=== PATIENT | male | born 1985 | race Caucasian/White ===

== ENCOUNTER → 2017-08-04 | Outpatient (CLI) | payer OTHER ==
[~2017-08-04] MED LIST: CEFTRIAXONE2 GM IV; LEVAQUIN 500 M500 M2 PO; MOBIC7.5 MG PO; PERCOCET 7.5-31 EACH PO
== END | disposition home or self-care (01) ==
LOC: M.RAD 12:50
DX: M25.552 Pain in left hip (principal); G89.29 Other chronic pain; F17.210 Nicotine dependence, cigarettes, uncomplicated; Z79.891 Long term (current) use of opiate analgesic

== ENCOUNTER → 2017-08-11 | Outpatient (CLI) | payer OTHER ==
[2017-08-11 16:36] LABS: HEMATOCRIT 43.6 % (42.0-52.0); MCH 30.2 pg (26.0-34.0); MCHC 34.5 g/dL (28.0-37.0); MCV 87.5 fL (80.0-100.0); MPV 8.7 fl. (7.2-11.1); RBC 4.98 mil/uL (4.50-6.00); RDW-CV 12.7 % (10.5-14.5); WBC 9.5 thou/uL (4.0-11.0)
== END ==
LOC: M.LAB 16:14
PROVIDERS: Orthopaedic Surgery
DX: M25.552 Pain in left hip (principal)

== ENCOUNTER 2017-08-23 22:56 | Inpatient (IN) | payer OTHER ==
[~2017-08-23] VITALS: Ht 190.5 cm; Wt 104.3 kg
[2017-08-23 23:19] VITALS: BP 135/83
[2017-08-23] MEDS ORDERED: CEFTRIAXONE2 GM IV (23:25)
[2017-08-23] MEDS ORDERED: PERCOCET 7.5-31 EACH PO (23:26)
[2017-08-23] MEDS ORDERED: MOBIC7.5 MG PO (23:27)
[2017-08-24 00:32] LABS: ABSOLUTE LYMPHOCYTES 0.8 thou/uL (0.8-5.3); ABSOLUTE MONOCYTES 0.3 thou/uL (0.0-1.2); ABSOLUTE NEUTROPHILS 3.3 thou/uL (1.6-8.1); BASOPHILS 0.6 %; EOSINOPHILS 0.5 %; HEMATOCRIT 43.6 % (42.0-52.0); LYMPHOCYTES 17.9 %; MCH 29.9 pg (26.0-34.0); MCHC 34.4 g/dL (28.0-37.0); MCV 87.1 fL (80.0-100.0); MONOCYTES 7.4 %; MPV 8.6 fl. (7.2-11.1); NUCLEATED RBCS 0 /100WBC; PLATELET COUNT* 182 thou/uL (150-400); POLYS 73.6 %; RBC 5.01 mil/uL (4.50-6.00); RDW-CV 12.5 % (10.5-14.5); WBC 4.5 thou/uL (4.0-11.0)
[2017-08-24 00:41] LABS: ANION GAP 7 mmol/L (7-16); BUN 19 mg/dL (7-18); CALCIUM 8.7 mg/dL (8.5-10.1); CHLORIDE 99 mmol/L (98-107); CO2 28 mmol/L (21-32); CREATININE 1.2 mg/dL (0.6-1.3); GLUCOSE 107 mg/dL (70-99); POTASSIUM 4.2 mmol/L (3.5-5.1); SODIUM 134 mmol/L (136-145)
[2017-08-24 00:52] LABS: ALBUMIN 3.6 g/dL (3.4-5.0); ALKALINE PHOSPHATASE 131 U/L (46-116); LIPASE 105 U/L (73-393); NT-PRO BRAIN NAT PEPTIDE 71 pg/mL (<300); SGOT 24 U/L (15-37); SGPT 28 U/L (30-65); TOTAL BILIRUBIN 0.3 mg/dL (<0.1-1.0); TOTAL PROTEIN 7.7 g/dL (6.4-8.2); TROPONIN-I LEVEL <0.06 ng/mL (<0.06)
[2017-08-24 01:06] LABS: INR 1.1; PROTIME 10.5 Seconds (9.20-11.50)
[2017-08-24 01:18] LABS: INFLUENZA A ANTIGEN None Detected (None Detect); INFLUENZA B ANTIGEN None Detected (None Detect)
[2017-08-24 03:17] LABS: URINE BILIRUBIN NEGATIVE (Negative); URINE BLOOD NEGATIVE (Negative); URINE CLARITY CLEAR; URINE COLOR YELLOW; URINE GLUCOSE-RANDOM NEGATIVE (Negative); URINE KETONES NEGATIVE (Negative); URINE LEUKOCYTES-REFLEX NEGATIVE (Negative); URINE NITRITE-REFLEX NEGATIVE (Negative); URINE PROTEIN NEGATIVE (Negative); URINE UROBILINOGEN 0.2 E.U./dl (0.2-1.0)
[2017-08-24 03:22] LABS: AMP/METHAMP Negative (Negative); BARBITURATES Negative (Negative); BENZODIAZEPINES Negative (Negative); COCAINE Negative (Negative); METHADONE Negative (Negative); OPIATES POSITIVE (Negative); PCP Negative (Negative); THC POSITIVE (Negative)
[2017-08-24 03:31] VITALS: BP 114/61
[2017-08-24 05:12] VITALS: BP 119/76
[2017-08-24 09:45] VITALS: BP 143/77
[2017-08-24 15:54] VITALS: BP 138/78
[2017-08-24 20:00] VITALS: BP 121/71
[2017-08-25 08:02] VITALS: BP 124/71
--- NOTE | 2017-08-25 12:11 | CON ---
[address] [address] CONSULTATION Name: TOMI MYERS Room: [address] M.R.#: [id number] Admission: 08/24/17 Attend Phys: Marii Castañeda MD Discharge: Date of : 81 Report #: [id number] THIS REPORT FOR: //name// CC: Giancarlo Castañeda DATE OF SERVICE: 08/24/2017 ATTENDING PHYSICIAN: Dr. Castañeda. REASON FOR EVALUATION: Postoperative fevers. HISTORY OF PRESENT ILLNESS: Chart reviewed, patient examined. This is a 32-year-old male without significant medical history. Apparently, he had longstanding issues with his left hip. He was found to have septic arthritis, underwent operative surgical debridements last week. Per report, cultures had growth of Streptococcus. He was discharged home with PICC line, treated with parenteral therapy, specifically ceftriaxone. Generally he had been doing fairly well, noted easing of the pain until roughly a day before his admission, although he did not have increasing pain in the hip, he did have fevers recorded to 103, somewhat weak. It was associated with chills. He had cough, little bit of sore throat, headache, generalized myalgias, arthralgias. Denied significant gastrointestinal-related complaints. Evaluation including influenza antigen testing was negative. Drug screen was positive for opiates and marijuana. CT of the pelvis showed left hip joint space narrowing with degenerative change. No definite abscess or significant joint fluid, postoperative ____. Chest x-ray showed no acute process. Urinalysis unremarkable as well. Lactic acid 1.0. Normal white count. He was admitted to the hospital and started on vancomycin as well as levofloxacin. Blood cultures are pending. ALLERGIES: None known. MEDICATIONS: Currently include levofloxacin, vancomycin, p.r.n. analgesics, nicotine patch. PAST MEDICAL HISTORY: Otherwise, unremarkable with the above. SOCIAL HISTORY: Smokes a pack a day for 10 years. Occasional ethanol. FAMILY HISTORY: Noncontributory. PHYSICAL EXAMINATION: GENERAL: Pleasant, alert, cooperative, in mild distress. He is not encephalopathic. VITAL SIGNS: T-max since admission 100.2, more recently 97.8, pulse 77, respirations 16, blood pressure is 143/77. [place] [address] CONSULTATION Name: LUCIATOMI Room: [address]#: [id number] Admission: 08/24/17 Attend Phys: Marii Castañeda MD Discharge: Date of : 81 Report #: [id number] SKIN: Warm, dry, no rashes. HEENT AND NECK: Neck is supple. LUNGS: Generally clear to auscultation. HEART: Regular. No appreciated murmur. ABDOMEN: Soft, nontender, nondistended. EXTREMITIES: No cyanosis. GENITOURINARY: Deferred. RECTAL: Deferred. LABORATORY DATA: As described above. Electrolytes: Sodium 134, potassium 4.2, chloride 99, bicarbonate is 28. BUN and creatinine 19 and 1.2. AST of 24, ALT of 28, albumin of 3.6. Total protein 7.7. Estimated GFR of 69. CBC: White count of 4.5, H and H 15.0 and 43.6, platelets of 182. ASSESSMENT AND PLAN: Febrile illness, uncertain etiology. Actually, he does not look overtly toxic at this point. I do not ____ that there are issues with the operative site. Certainly ____ was felt quite ill on admission. He was treated with continued empiric therapy, pending the results. We will go ahead and do a viral respiratory panel as well. I do not think there is any indication to do additional imaging studies at this point. We will follow. <ELECTRONICALLY SIGNED> By: Brown Hidalgo MD 08/25/17 1211 [id number] Hidalgo MD /nt
[2017-08-25 14:14] VITALS: BP 124/71
[2017-08-25] MEDS ORDERED: LEVAQUIN 500 M500 M2 PO (14:35)
[2017-08-27 22:07] LABS: ADENOVIRUS Negative (Negative); INFLUENZA A Negative (Negative); INFLUENZA B Negative (Negative); METAPNEUMOVIRUS Negative (Negative); PARAINFLUENZA 1 Negative (Negative); PARAINFLUENZA 2 Negative (Negative); PARAINFLUENZA 3 Negative (Negative); RHINOVIRUS Negative (Negative); RSV A Negative (Negative); RSV B Negative (Negative)
== END 2017-08-25 15:15 | disposition home health service (06) | DRG 202 ==
LOC: M.ERS 22:56 → M.ORTHSURG 08-24 02:08 → M.TBA-ER 08-24 02:08 → M.ORTHSURG 08-24 03:23
PROVIDERS: Family Medicine; Specialist; ADMIT Internal Medicine
DX: J20.9 Acute bronchitis, unspecified (principal); R65.10 Systemic inflammatory response syndrome (SIRS) of non-infectious origin without acute organ dysfunction; M00.9 Pyogenic arthritis, unspecified; R50.82 Postprocedural fever; F17.210 Nicotine dependence, cigarettes, uncomplicated; J06.9 Acute upper respiratory infection, unspecified; Z79.899 Other long term (current) drug therapy; Z28.21 Immunization not carried out because of patient refusal

== ENCOUNTER 2020-01-13 16:41 | Emergency (ER) | payer OTHER | END 2020-01-13 21:34 | disposition home or self-care (01) | LOC: M.ERS 16:41 | DX: L03.116 Cellulitis of left lower limb (principal); Z96.642 Presence of left artificial hip joint ==